=== PATIENT | male | born 1975 | race Caucasian/White ===

== ENCOUNTER 2018-11-25 12:04 | Emergency (ER) | payer BC ==
[~2018-11-25] VITALS: Ht 182.9 cm; Wt 131.5 kg
[2018-11-25 13:12] VITALS: BP 142/81
== END 2018-11-25 13:59 | disposition home or self-care (01) ==
LOC: ER 12:04
DX: H66.92 Otitis media, unspecified, left ear (principal); G51.0 Bell's palsy; I10 Essential (primary) hypertension
CPT/HCPCS: 70450